=== PATIENT | female | born 1950 | race Caucasian/White ===

== ENCOUNTER → 2020-09-18 | Outpatient (CLI) | payer MEDICARE ==
--- NOTE | 2020-09-18 12:20 | KCIC ---
EXAM: Left first toe 3 views. HISTORY: Pain after injury. COMPARISON: None. FINDINGS: No fractures are identified. 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 Alignment is maintained. There is severe soft tissue swelling along the forefoot. There are moderate plantar and posterior calcaneal spurs. IMPRESSION: 1. No fracture. Severe forefoot soft tissue swelling. 2. Mild first metatarsophalangeal osteoarthritis. Electronically signed by: Joselin Eddy MD (09/18/2020 12:18 PM) [id number]
== END ==
LOC: KCIC 11:33
PROVIDERS: ATTEND Family Medicine
DX: M19.072 Primary osteoarthritis, left ankle and foot (principal); M79.89 Other specified soft tissue disorders
CPT/HCPCS: 73660